=== PATIENT | female | born 1990 | race Caucasian/White ===

== ENCOUNTER 2017-12-26 23:13 | Emergency (ER) | payer OTHER ==
[~2017-12-26] VITALS: Ht 170.2 cm; Wt 63.5 kg
[2017-12-26 23:23] VITALS: BP 137/93
[2017-12-26] MEDS ORDERED: GELATIN SPONGE,ABSORBABLE 1 SPONGE SPONGE TP ONE (23:30)
[2017-12-26] MEDS ORDERED: TDAP [DIPH/PERTUSSIS/TET] 0.5 ML VIAL IM ONE (23:50)
[2017-12-27] MEDS ORDERED: TDAP [DIPH/PERTUSSIS/TET] 0.5 ML VIAL IM ONE
== END 2017-12-27 00:11 | disposition home or self-care (01) ==
LOC: ER 23:19
DX: S61.300A Unspecified open wound of right index finger with damage to nail, initial encounter (principal); Z60.2 Problems related to living alone; W26.8XXA Contact with other sharp object(s), not elsewhere classified, initial encounter; Y93.89 Activity, other specified; Y92.090 Kitchen in other non-institutional residence as the place of occurrence of the external cause; Y99.8 Other external cause status
CPT/HCPCS: 90471; 90715; 99283; A4606; A6403; Z7610

== ENCOUNTER 2017-12-28 17:11 | Emergency (ER) | payer OTHER ==
[~2017-12-28] VITALS: Ht 165.1 cm; Wt 74.8 kg
[2017-12-28 18:07] VITALS: BP 145/88
== END 2017-12-28 18:45 | disposition home or self-care (01) ==
LOC: ER 17:18
DX: S61.201D Unspecified open wound of left index finger without damage to nail, subsequent encounter (principal); Z60.2 Problems related to living alone; W31.89XD Contact with other specified machinery, subsequent encounter
CPT/HCPCS: 99283; A4606; Z7610